=== PATIENT | male | born 1965 | race Caucasian/White ===

== ENCOUNTER 2021-12-31 14:04 | Emergency (ER) | payer OTHER ==
[~2021-12-31] VITALS: Ht 170.2 cm; Wt 118.0 kg
[2021-12-31 14:09] VITALS: BP 148/88
--- NOTE | 2021-12-31 15:23 | RAD ---
4 view left knee dated 12/31/2021. COMPARISON: None. INDICATION: Pain FINDINGS: 4 views of left knee show normal bony alignment. No displaced fracture. Moderate tricompartmental hyp ertrophic change with prominent marginal osteophytes. Evidence of prior ACL repair. Small joint effus ion. Suspected small loose body at the posterior joint space. IMPRESSION: 1. No acute radiographic abnormality. 2. Moderate tricompartmental DJD. 3. Suspected small joint effusion. If there is clinical concern for internal derangement, MRI would b tess evaluate. Electronically signed by: Justin Sharp MD (12/31/2021 3:21 PM) REMIGIO
--- NOTE | 2021-12-31 16:05 | PHYS DOC ---
Past History Additional Past Medical Histor: PE Past Surgical History: Other Additional Past Surgical Histo: ACL times 2 General Adult EDM: Chief Complaint: KNEE INJURY HPI: HPI: 56-year-old male presents with left knee pain. The patient is elected [employer] at work. He had significant knee pain yesterday while he was at work to the point where it was difficult to put any weight on it. He denies any falls or trauma. He had ACL repair twice in the past on this knee. Its been many years. He feels like it is swollen compared to the right. Review of Systems: Review of Systems: Constitutional: Denies fever or chills Eyes: Denies change in visual acuity HENT: Denies nasal congestion or sore throat Respiratory: Denies cough or shortness of breath Cardiovascular: Denies chest pain or edema GI: Denies abdominal pain, nausea, vomiting, bloody stools or diarrhea : Denies dysuria Musculoskeletal: Left knee pain Integument: Denies rash Neurologic: Denies headache, focal weakness or sensory changes Endocrine: Denies polyuria or polydipsia Lymphatic: Denies swollen glands Psychiatric: Denies depression or anxiety Allergies: Allergies: Allergies Coded Allergies Type Severity Reaction Last Updated Verified morphine Allergy Unknown 12/31/21 Yes Physical Exam: PE: Constitutional: Well developed, well nourished, no acute distress, non-toxic appearance. [] HENT: Normocephalic, atraumatic, bilateral external ears normal, oropharynx moist, no oral exudates, nose normal. [] Eyes: PERRLA, EOMI, conjunctiva normal, no discharge. [] Neck: Normal range of motion, no tenderness, supple, no stridor. [] Cardiovascular:Heart rate regular rhythm, no murmur [] Lungs & Thorax: Bilateral breath sounds clear to auscultation [] Abdomen: Bowel sounds normal, soft, no tenderness, no masses, no pulsatile masses. [] Skin: Warm, dry, no erythema, no rash. Surgical scar over both knees [] Back: No tenderness, no CVA tenderness. [] Extremities: Left knee swollen compared to right, no ecchymosis, no warmth. Solid end feel of ligaments with no significant pain with testing. [] Neurologic: Alert and oriented X 3, normal motor function, normal sensory function, no focal deficits noted. [] Psychologic: Affect normal, judgement normal, mood normal. [] Current Patient Data: Vital Signs: Vital Signs Date Time Temp Pulse Resp B/P (MAP) Pulse Ox O2 Delivery O2 Flow Rate FiO2 12/31/21 14:09 97.6 84 16 148/88 (108) 97 Room Air EKG: EKG: [] Radiology/Procedures: Radiology/Procedures: [] Impressions: 4 view left knee dated 12/31/2021. COMPARISON: None. INDICATION: Pain FINDINGS: 4 views of left knee show normal bony alignment. No displaced fracture. Moderate tricompartmental hypertrophic change with prominent marginal osteophytes. Evidence of prior ACL repair. Small joint effusion. Suspected small loose body at the posterior joint space. IMPRESSION: 1. No acute radiographic abnormality. 2. Moderate tricompartmental DJD. 3. Suspected small joint effusion. If there is clinical concern for internal derangement, MRI would better evaluate. Electronically signed by: Lilli Sharp MD (12/31/2021 3:21 PM) [facility] [place] DICTATED AND SIGNED BY: LILLI SHARP MD DATE: 12/31/21 1519 CC: LASHAY ROCHA DO; PCP,NO ~ Heart Score: C/O Chest Pain: N/A Risk Factors: Risk Factors: DM, Current or recent (<one month) smoker, HTN, HLP, family history of CAD, obesity. Risk Scores: Score 0 - 3: 2.5% MACE over next 6 weeks - Discharge Home Score 4 - 6: 20.3% MACE over next 6 weeks - Admit for Clinical Observation Score 7 - 10: 72.7% MACE over next 6 weeks - Early Invasive Strategies Course & Med Decision Making: Course & Med Decision Making Pertinent Labs and Imaging studies reviewed. (See chart for details) The patient's x-ray does show small joint effusion and possible loose body at the posterior joint space. I recommended that he follow-up with orthopedics. He is stable for discharge at this time. [] Dragon Disclaimer: Bailee Disclaimer: This electronic medical record was generated, in whole or in part, using a voice recognition dictation system. Departure Departure: Impression: Primary Impression: Left knee pain Disposition: HOME / SELF CARE / HOMELESS Condition: STABLE Referrals: PCP,NO (PCP) Patient Instructions: Knee Pain, [id number] LASHAY ROCHA DO December 31, 2021 16:05
[2021-12-31] MEDS ORDERED: HYDR-2759 PO (16:18)
[2021-12-31] MEDS ORDERED: HYDROcodone/APAP 5/325MG 1 TAB TABLET PO ONE (16:30)
== END 2021-12-31 16:35 | disposition home or self-care (01) ==
LOC: ER 14:04
DX: M25.562 Pain in left knee (principal); R22.42 Localized swelling, mass and lump, left lower limb; Z88.5 Allergy status to narcotic agent
CPT/HCPCS: 73564; 99283

== ENCOUNTER 2022-01-10 09:54 | Emergency (ER) | payer OTHER ==
[~2022-01-10] VITALS: Ht 170.2 cm; Wt 119.0 kg
[~2022-01-10 09:54] MED LIST: HYDR-2759 PO
[2022-01-10] MEDS ORDERED: IV NORMAL SALINE 1,000ML 1,000 ML IV SCH (10:15)
[2022-01-10] MEDS ORDERED: ONDANSETRON PF 4 MG/2 ML VIAL. IVP ONE (10:15)
--- NOTE | 2022-01-10 10:16 | PHYS DOC ---
Past History Additional Past Medical Histor: PE (DANY MEHTA APRN) Past Surgical History: Other Additional Past Surgical Histo: ACL times 2 (DANY MEHTA APRN) Alcohol Use: None (DANY MEHTA APRN) General Adult EDM: Chief Complaint: ABDOMINAL PAIN HPI: HPI: Patient is a 56-year-old male who presents to the emergency department for upper abdominal pain that started last night. He describes the pain as a cramping and rates it 7 out of 10. The pain does not radiate. No treatment prior to arrival. Patient reports that last night he did have 1 episode of vomiting was personally ingested food. He states that his urine has been dark today. His last bowel movement was yesterday. He denies any dysuria, current nausea or vomiting, fevers, blood in his stools or vomit, chest pain, shortness of breath. Patient has a history of PE and hyperlipidemia. He is taking Xarelto. His blood pressure is elevated upon ER arrival, he reports that he has "borderline hypertension" but does not take any medications. (DANY MEHTA APRN) Review of Systems: Review of Systems: Constitutional: See HPI Respiratory: See HPI Cardiovascular: See HPI GI: See HPI : See HPI (DANY MEHTA APRN) Allergies: Allergies: Allergies Coded Allergies Type Severity Reaction Last Updated Verified morphine Allergy Unknown 12/31/21 Yes (DANY MEHTA APRN) Physical Exam: PE: Constitutional: Well developed, well nourished, no acute distress, non-toxic appearance. [] HENT: Normocephalic, atraumatic, bilateral external ears normal, oropharynx moist, no oral exudates, nose normal. [] Eyes: PERRL, EOMI, conjunctiva normal, no discharge. [] Neck: Normal range of motion, no tenderness, supple, no stridor. [] Cardiovascular:Heart rate regular rhythm, no murmur [] Lungs & Thorax: Bilateral breath sounds clear to auscultation [] Abdomen: Bowel sounds normal, soft, right upper and left upper quadrant tenderness with palpation, no abdominal guarding or rigidity,, no masses, no pulsatile masses. [] Skin: Warm, dry, no erythema, no rash. [] Back: No tenderness, no CVA tenderness. [] Extremities: No tenderness, no cyanosis, no clubbing, ROM intact, no edema. [] Neurologic: Alert and oriented X 3, normal motor function, normal sensory function, no focal deficits noted. [] Psychologic: Affect normal, judgement normal, mood normal. [] (DANY MEHTA APRN) Current Patient Data: Labs: Laboratory Tests Test 01/10/22 10:31 01/10/22 10:48 White Blood Count 11.0 x10^3/uL Red Blood Count 5.94 x10^6/uL Hemoglobin 16.8 g/dL Hematocrit 49.4 % Mean Corpuscular Volume 83 fL Mean Corpuscular Hemoglobin 28 pg Mean Corpuscular Hemoglobin Concent 34 g/dL Red Cell Distribution Width 13.7 % Platelet Count 330 x10^3/uL Neutrophils (%) (Auto) 86 % Lymphocytes (%) (Auto) 9 % Monocytes (%) (Auto) 5 % Eosinophils (%) (Auto) 0 % Basophils (%) (Auto) 0 % Neutrophils # (Auto) 9.4 x10^3uL Lymphocytes # (Auto) 1.0 x10^3/uL Monocytes # (Auto) 0.5 x10^3/uL Eosinophils # (Auto) 0.0 x10^3/uL Basophils # (Auto) 0.0 x10^3/uL Sodium Level 137 mmol/L Potassium Level 3.8 mmol/L Chloride Level 102 mmol/L Carbon Dioxide Level 25 mmol/L Anion Gap 10 Blood Urea Nitrogen 16 mg/dL Creatinine 1.1 mg/dL Estimated GFR (Cockcroft-Gault) 69.2 BUN/Creatinine Ratio 15 Glucose Level 148 mg/dL Calcium Level 9.6 mg/dL Total Bilirubin 0.5 mg/dL Aspartate Amino Transf (AST/SGOT) 21 U/L Alanine Aminotransferase (ALT/SGPT) 37 U/L Alkaline Phosphatase 91 U/L Total Protein 8.3 g/dL Albumin 3.9 g/dL Albumin/Globulin Ratio 0.9 Lipase 64 U/L Urine Collection Type Unknown Urine Color Carla Urine Clarity Clear Urine pH 5.5 Urine Specific [place] >=1.030 Urine Protein 30 mg/dl Urine Glucose (UA) Neg mg/dL Urine Ketones (Stick) Trace mg/dL Urine Blood Trace Urine Nitrite Neg Urine Bilirubin Neg Urine Urobilinogen Dipstick 1.0 mg/dL Urine Leukocyte Esterase Neg Urine RBC 3-5 /HPF Urine WBC 1-4 /HPF Urine Squamous Epithelial Cells Occ /LPF Urine Bacteria 0 /HPF Urine Mucus Marked /LPF Current Medications Medications (Trade) Dose Ordered Sig/Karthik Route PRN Reason Start Time Stop Time Status Last Admin Dose Admin Sodium Chloride 1,000 ml @ 1,000 mls/hr Q1H IV 01/10/22 10:15 01/10/22 11:14 DC 01/10/22 10:15 Fentanyl Citrate (Fentanyl 2ml Vial) 50 mcg 1X ONCE IVP 01/10/22 10:15 01/10/22 10:16 DC 01/10/22 10:15 Ondansetron HCl (Zofran) 4 mg 1X ONCE IVP 01/10/22 10:15 01/10/22 10:16 DC 01/10/22 10:15 Piperacillin Sod/ Tazobactam Sod 4.5 gm/Sodium Chloride 50 ml @ 100 mls/hr 1X ONCE IV 01/10/22 12:00 01/10/22 12:29 UNV Fentanyl Citrate (Fentanyl 2ml Vial) 50 mcg 1X ONCE IVP 01/10/22 12:00 01/10/22 12:01 UNV Vital Signs: Vital Signs Date Time Temp Pulse Resp B/P (MAP) Pulse Ox O2 Delivery O2 Flow Rate FiO2 01/10/22 10:02 98.2 90 16 178/108 (131) 96 Room Air (DANY MEHTA APRN) EKG: EKG: [] (DANY MEHTA APRN) Radiology/Procedures: Radiology/Procedures: []PROCEDURE: CT ABDOMEN PELVIS WO CONTRAST EXAM: Abdomen and pelvis CT without intravenous contrast. HISTORY: Pain. TECHNIQUE: Computed tomographic images of the abdomen and pelvis were obtained without contrast. Multiplanar reformatting was performed. *One or more of the following individualized dose reduction techniques were utilized for this examination: 1. Automated exposure control. 2. Adjustment of the mA and/or kV according to patient size. 3. Use of iterative reconstruction technique. COMPARISON: None. FINDINGS: Evaluation of the lower thorax demonstrates no infiltrate or pleural effusion. The heart is normal in size. No hepatic lesion is seen. There is a contracted thick-walled gallbladder containing stones, including a stone within the gallbladder neck. There is slight surrounding stranding. The pancreas is unremarkable. There is a splenule adjacent to an otherwise unremarkable spleen. There is a 1.9 cm right adrenal nodule, the attenuation which favors a benign adenoma. The kidneys are unremarkable. There is no appendicitis. There is colonic diverticulosis. There is no convincing diverticulitis. There is mild prostatomegaly. The bladder is unremarkable. The aorta is normal in caliber. There is no lymphadenopathy. There is a transitional lumbosacral segment. There are degenerative changes primarily involving the lower lumbar levels. There is no acute or suspicious osseous finding. There are few benign bone islands. There are small fat-containing inguinal hernias. IMPRESSION: 1. Contracted thick walled gallbladder containing multiple stones, including a stone within the gallbladder neck. There is slight surrounding stranding suggesting the possibility of cholecystitis. Correlate with symptomatology and gallbladder sonography. 2. Colonic diverticulosis. 3. 1.9 cm suspected right adrenal adenoma. 4. Mild prostatomegaly. 5. Small fat-containing inguinal hernias. Electronically signed by: Rosi Shaffer MD (01/10/2022 10:47 AM) [id number] DICTATED AND SIGNED BY: ROSI SHAFFER MD DATE: 01/10/22 104 CC: EMERGENCY,DEPARTMENT; JOSE BROUSSARD; DANY MEHTA APRN ~ (DANY MEHTA APRN) Heart Score: C/O Chest Pain: No Risk Factors: Risk Factors: DM, Current or recent (<one month) smoker, HTN, HLP, family history of CAD, obesity. Risk Scores: Score 0 - 3: 2.5% MACE over next 6 weeks - Discharge Home Score 4 - 6: 20.3% MACE over next 6 weeks - Admit for Clinical Observation Score 7 - 10: 72.7% MACE over next 6 weeks - Early Invasive Strategies (DANY MEHTA APRN) Course & Med Decision Making: Course & Med Decision Making Pertinent Labs and Imaging studies reviewed. (See chart for details) Patient resents to the emergency department for upper abdominal pain. 1 episode of vomiting yesterday. Patient has a history of gallstones. Work-up in the ER consisted of blood work including lipase, urinalysis and CT imaging of abdomen and pelvis without contrast due to national shortage of contrast. Patient treated with IV fluids, nausea and pain medication. Patient's blood work was unremarkable. CT scan does show cholecystitis. I discussed these findings with Dr. Null, general surgeon at [facility] he agreed to consult on patient. He was made aware that patient does have a history of pulmonary embolisms and is on Xarelto. Patient's case was discussed with Dr. Pederson and he will admit him under his services. Antibiotics and pain medication ordered for patient. (DANY MEHTA APRN) Dragon Disclaimer: Dragon Disclaimer: This electronic medical record was generated, in whole or in part, using a voice recognition dictation system. (DANY MEHTA APRN) Departure Departure: Impression: Primary Impression: Cholecystitis Disposition: 02 SHORT TERM HOSPITAL Condition: GOOD Referrals: JOSE BROUSSARD (PCP) Attending Signature I have participated in the care of this patient and I have reviewed and agree with all pertinent clinical information above including history, exam, and recommendations. (KATTY FRANCO DO) DANY MEHTA APRN January 10, 2022 10:16 KATTY FRANCO DO January 10, 2022 12:13
--- NOTE | 2022-01-10 10:49 | RAD ---
EXAM: Abdomen and pelvis CT without intravenous contrast. HISTORY: Pain. TECHNIQUE: Computed tomographic images of the abdomen and pelvis were obtained without contrast. Mult iplanar reformatting was performed. *One or more of the following individualized dose reduction techniques were utilized for this examina tion: 1. Automated exposure control. 2. Adjustment of the mA and/or kV according to patient size. 3. Use of iterative reconstruction technique. COMPARISON: None. FINDINGS: Evaluation of the lower thorax demonstrates no infiltrate or pleural effusion. The heart is normal in size. No hepatic lesion is seen. There is a contracted thick-walled gallbladder containing stones, including a stone within the gallbladder neck. There is slight surrounding stranding. The pa ncreas is unremarkable. There is a splenule adjacent to an otherwise unremarkable spleen. There is a 1.9 cm right adrenal nodule, the attenuation which favors a benign adenoma. The kidneys are unremarka ble. There is no appendicitis. There is colonic diverticulosis. There is no convincing diverticulitis. The re is mild prostatomegaly. The bladder is unremarkable. The aorta is normal in caliber. There is no l ymphadenopathy. There is a transitional lumbosacral segment. There are degenerative changes primarily involving the lower lumbar levels. There is no acute or suspicious osseous finding. There are few be nign bone islands. There are small fat-containing inguinal hernias. IMPRESSION: 1. Contracted thick walled gallbladder containing multiple stones, including a stone within the gallb ladder neck. There is slight surrounding stranding suggesting the possibility of cholecystitis. Corre late with symptomatology and gallbladder sonography. 2. Colonic diverticulosis. 3. 1.9 cm suspected right adrenal adenoma. 4. Mild prostatomegaly. 5. Small fat-containing inguinal hernias. Electronically signed by: Rosi Balderas MD (01/10/2022 10:47 AM) [id number]
[2022-01-10 10:51] LABS: BASO % 0 % (0-3); EOS % 0 % (0-3); HEMATOCRIT 49.4 % (39.0-53.0); HEMOGLOBIN 16.8 g/dL (13.0-17.5); LYMPH % 9 % (24-48); MEAN CORPUSCULAR HEMOGLOBIN 28 pg (25-35); MEAN CORPUSCULAR HGB CONC 34 g/dL (31-37); MEAN CORPUSCULAR VOLUME 83 fL (79-100); MONO # 0.5 x10^3/uL (0.0-1.1); MONO % 5 % (0-9); NEUT # 9.4 x10^3uL (1.8-7.7); NEUT % 86 % (31-73); PLATELET COUNT 330 x10^3/uL (140-400); RED BLOOD COUNT 5.94 x10^6/uL (4.30-5.70); RED CELL DISTRIBUTION WIDTH 13.7 % (11.5-14.5)
[2022-01-10 10:53] LABS: CALCIUM 9.6 mg/dL (8.5-10.1); CREATININE 1.1 mg/dL (0.7-1.3); GFR 69.2; POTASSIUM 3.8 mmol/L (3.5-5.1)
[2022-01-10 11:00] LABS: ALBUMIN 3.9 g/dL (3.4-5.0); ALBUMIN/GLOBULIN RATIO 0.9 (1.0-1.7); TOTAL BILIRUBIN 0.5 mg/dL (0.2-1.0); TOTAL PROTEIN 8.3 g/dL (6.4-8.2)
[2022-01-10 11:19] LABS: BACTERIA,URINE 0 /HPF (0-FEW); CLARITY,URINE CLEAR; COLOR,URINE AMBER; GLUCOSE,URINE NEG (NEG); NITRITE,URINE NEG (NEG); SQUAMOUS EPITHELIAL CELL,UR OCC /LPF
[2022-01-10] MEDS ORDERED: PIPERACILLIN/TAZOBACTAM 4.5 GM in IV NORMAL SALINE 50ML 50 ML IV ONE (12:00)
[2022-01-10] MEDS ORDERED: PIPERACILLIN/TAZOBACTAM 4.5 GM VIAL IV ONE (12:01)
[2022-01-10] MEDS ORDERED: IV NORMAL SALINE 50ML 50 ML ONE (12:01)
[2022-01-10 13:38] VITALS: BP 155/86
== END 2022-01-10 14:32 | disposition short-term general hospital (02) ==
LOC: ER 09:54
DX: K81.9 Cholecystitis, unspecified (principal); Z88.5 Allergy status to narcotic agent
CPT/HCPCS: 36415; 74176; 80053; 81001; 83690; 85025; 96361; 96365; 96366; 96375; 96376; 99285; J2405; J2543; J3010; J7030